=== PATIENT | male | born 1965 | race Caucasian/White ===

== ENCOUNTER 2016-10-27 06:09 | Inpatient (IN) ==
[2016-10-27] MEDS ORDERED: Lidocaine -MPF 4% 5 ML AMPUL ONE (06:46)
[2016-10-27] MEDS ORDERED: *HR* FentaNYL (PF) 100 MCG/2 ML VIAL ONE ×2 (06:50→07:17)
[2016-10-27] MEDS ORDERED: Ondansetron 4 MG/2 ML VIAL ONE (06:50)
[2016-10-27] MEDS ORDERED: *HR* Phenylephrine 10 MG/ML VIAL ONE (06:50)
[2016-10-27] MEDS ORDERED: Dexamethasone 4 MG/ML VIAL ONE (06:50)
[2016-10-27] MEDS ORDERED: *HR* Remifentanil 1 MG VIAL IVP ONE (06:50)
[2016-10-27] MEDS ORDERED: Lidocaine -MPF 2% 2 ML VIAL ONE (06:50)
[2016-10-27] MEDS ORDERED: *HR* Succinylcholine 200 MG/10 ML VIAL IVP ONE (06:50)
[2016-10-27] MEDS ORDERED: *HR* Midazolam HCl 2 MG/2 ML VIAL ONE ×2 (06:50→07:17)
[2016-10-27] MEDS ORDERED: *HR* Propofol 200 MG/20 ML VIAL IVP ONE (06:50)
[2016-10-27] MEDS ORDERED: Lidocaine 1% 20 ML MDV ID ONE (06:57)
[2016-10-27] MEDS ORDERED: CeFAZolin Pre 3,000 MG/100 ML 3,000 MG/100 ML BAG IVPB ONE (06:57)
[2016-10-27] MEDS ORDERED: Albuterol 2.5 MG/3 ML NEBULIZER IH ONE (07:00)
[2016-10-27] MEDS ORDERED: Ringers Solution, Lactated 1,000 ML IVC SCH (07:00)
--- NOTE | 2016-10-27 07:08 | Anesthesia Evaluation PreOp ---
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 (neck pain with intermittent bilat radic) Other Medical History: Denies Any Significant HX Anesthesia History: No Prior Anesthetic Complications, Past Anesthesia (r ankle , l wrist, bariatric, r eduard, l eduard) Alcohol Use: none Drug use: none Medications and Allergies Allergies NSAIDS (Non-Steroidal Anti-Inflamma Adverse Reaction (Verified 07/28/16 13:44) Nausea prednisone Adverse Reaction (Verified 07/28/16 13:44) Nausea - Meds/Allergy Pre-op Review Medications Reviewed: Yes Allergies Reviewed: Yes Beta Blockers on Current Med List: No Anesthesia Results - Labs Laboratory Tests 07/16/14 10/26/16 10/26/16 11:25 12:33 12:33 Hgb Hct Plt Count PT 13.5 H PTT 32.0 INR 1.2 Sodium 140 Potassium 4.8 H Creatinine 0.77 10/26/16 12:33 Hgb 13.5 Hct 42.4 Plt Count 186 PT PTT INR Sodium Potassium Creatinine Anesthesia Exam O2 Sat Height 1.8 m Height 1.8 m Weight 123.377 kg Weight 123.377 kg O2 Sat by Pulse Oximetry 97 Vital Signs Temp Pulse Resp BP Pulse Ox 97.9 F 59 18 127/76 97 10/27/16 06:52 10/27/16 06:52 10/27/16 06:52 10/27/16 06:52 10/27/16 06:52 Height: 1.8 Weight: 123 NPO (# of Hours): >8 - HEENT Pupil (Motor): Pupils equal, EOMI Mallampati: III Teeth: Poor dentition Oral Opening: Greater than 3 (good underbite) - MACHINE CLIPPER LOC: Oriented MACHINE CLIPPER Motor: Normal RLE, Normal LLE, Normal Face, Deficit RUE, Deficit LUE MACHINE CLIPPER Sensory: Normal: RLE, LLE, Face, Deficit: RUE, LUE - Cardiac Rhythm: Regular Murmur: None - Pulmonary Breath Sounds: bilateral Clear Respiratory Effort: Symmetrical Anesthesia Assess/Plan ASA Score: 2 (LEAH on induction with zero neck manipulation) Modified Thuan Scale for Level of Consciousness: Cooperative, oriented, and tranquil Anesthetic Plan: General Monitoring Plan: Standard Monitors Recovery Plan: PACU
--- NOTE | 2016-10-27 07:39 | History & Physical Report ---
Date of Encounter: 10/27/16 Time of Encounter: 07:38 24 Hour HP Update - Instructions Instructions: If the History and Physical is less than 30 days old and was completed prior to A.M. admission and or procedure and has NOT been updated on calendar day of procedure please complete this update prior to performing procedure. - Update Patient reports changes in Medical Condition: No Changes in assessment/condition: No Changes in Medication: No Preop tests/diagnostics Reviewed: Yes Pre-Op MRSA Screen: Negative Surgery Remains Indicated: Yes Consent for Planned Operative Procedure(s) Verified: Yes - Pre-Operative Checklist Preoperative Checklist Indicated: No Prophylactic Antibiotic Ordered: Yes Home Medications Include Beta Carson: No Beta Carson Taken Today (Day of Surgery): No Beta Carson Taken Yesterday (Day Prior to Surgery): No Is VTE Prophylaxis Indicated?: Yes
[2016-10-27] MEDS ORDERED: EPHEDrine 50 MG/ML VIAL ONE (08:33)
[2016-10-27] MEDS ORDERED: *HR* Labetalol 100 MG/20 ML MDV IVP PRN (09:22)
[2016-10-27] MEDS ORDERED: *HR* Promethazine 25 MG/ML VIAL IVP PRN (09:22)
--- NOTE | 2016-10-27 10:10 | Orthopedic Operative Note ---
Date of procedure: 10/27/16 Pre-op diagnosis: cervical stenosis, cervical radiculopathy Post-op diagnosis: same Operation/Findings: Anterior cervical decompression and fusion C5-C7:The patient was brought to the operating room and placed supine on the operating room table. Successful general endotracheal anesthesia intubation was performed. Neurophysiologic monitoring personnel placed leads on the upper and lower extremities as well as the cranium for EMG monitoring purposes. Appropriate baseline potentials were noted by the neurophysiologic monitoring staff. Reyna catheter was placed prior to positioning. Compression boots and stockings were placed for deep vein thrombosis prophylaxis. Padding was also placed all bony prominences including the ulnar nerve near the medial epicondyles of the elbows were appropriately padded. Mild traction was placed on the bilateral shoulders and taped into place. Preoperative antibiotics were administered. The area from the mandible bilaterally to the upper thoraces was prepped and draped in the usual sterile fashion. A transverse incision was made at the level of the cricoid cartilage which is approximately 3 cm in length and extended from the midline of the cervical spine laterally towards the sternocleidomastoid muscle on the left. We then performed standard medial approach to the carotid sheath. Sponges were used to tease the fascial medial to the sternocleidomastoid muscle while carefully controlling and palpating the carotid artery. Using careful dissection we were able to get to the level of the anterior vertebral bodies and longus coli muscles. The spinal needle was placed at the C6-7 appropriate level, and intraoperative radiograph was obtained which was a cervical spine lateral radiograph. The needle and radiograph confirmed we were at the correct operative level. We further exposed this level by using Bovie cautery under the medial edge of the longus colli muscles to allow them to be retracted approximately 2 mm laterally on each side. An 11 blade was used to perform anterior discectomy at the appropriate level after an initial annulotomy of the anterior longitudinal ligament and annulus was performed. Further disc material was removed with pituitary Rongeurs. Subsequently, Synthes pins were placed at the C6 and C7 vertebral bodies respectively to provide distraction. We then used a Trimline cervical retractor which was placed in both medial and lateral as well as inferior superior direction to allow full visualization of the appropriate disc and vertebral bodies. The Leica microscope was brought to the field and the remainder of the procedure was performed under the guidance of this microscope. Using pituitary rongeurs and small curettes, various micro-instruments, a full discectomy was performed at the appropriate C6-C7 level. The posterior longitudinal ligament was encountered and appeared partially calcified. A portion of this ligament was removed. After complete and thorough discectomy and removal of spondylitic material was performed the endplates of the vertebral bodies were prepared with a bur until allow bleeding of cancellous bone. A 7mm trial graft was evaluated and appeared to fit quite well within the excised C6-7 disc space. A cortico- cancellous allograft of 7 mm was utilized, carefully tapped into place within the excised disc space with the aid of a bone tamp. It was seated approximately 2 mm from the anterior edge of the cortex of the adjacent vertebral bodies. We then turned our attention to the C5-6 level where a similar series of procedures was performed including discectomy, removal of spondylitic material, end plate preparation, and trial grafting. An 8mm trial fit well within the C5-6 disc space. A 8 mm allograft was then placed at C5-6. A 42.5 mm cervical plate was then placed on the anterior aspect of the C5, C6 , and C7 vertebral bodies. The plate was placed in the midline position after drilling six 13 mm self tapping screws and inserting them. They were locked in place using standard Venture plate maneuvers. At this point a lateral radiograph of the cervical spine was obtained and showed satisfactory position of the graft and plate. The wound was copiously irrigated and bleeders encountered were cauterized using Bovie cautery. Platysma was closed with interrupted 2-0 Vicryl sutures. Running 3-0 Monocryl suture was used for skin closure. Sterile dressing was placed over the neck wound. A cervical collar was placed. The patient was transferred to a hospital bed and extubated. The patient was noted to be fully motor and sensory intact in the recovery room at the end of the procedure. The medications. All sponge instrument and needle counts were correct at the end of the procedure. Anesthesia: GETA Surgeon: Kahlil Stacy Jr Estimated blood loss (cc): 25 Condition: stable Disposition: PACU
[2016-10-27] MEDS: *HR* HYDROmorphone (PF) 1 MG/ML SYRINGE IVP PRN ×4 (10:47→11:13)
--- NOTE | 2016-10-27 11:34 | Anesthesia Evaluation Post Op ---
Date of Encounter: 10/27/16 Time of Encounter: 11:32 - Vital Signs Vital Signs: Vital Signs/O2 Sat/Glucose, Most Current Temp Pulse Resp BP Pulse Ox 10/27/16 11:15 97.3 F L 74 16 160/88 98 10/27/16 11:05 73 20 164/91 99 10/27/16 10:55 75 20 168/96 99 10/27/16 10:45 97.9 F 71 18 175/91 98 10/27/16 10:35 74 20 179/89 98 10/27/16 10:25 82 18 181/113 99 10/27/16 10:20 77 18 186/104 98 10/27/16 10:15 97.7 F 79 14 180/100 98 - Lungs Lungs: Clear Ascult./Percussion - Airway Airway: Non-obstructed - Cardiovascular Regular Rate - Mental Status Mental Status: Alert & Oriented, Answers Appropriately - Pain Pain Scale: 2 - Nausea Vomiting Nausea Vomiting: Not Present - Hydration Hydration: Tolerates oral liquids Notes: 10/27/16 11:32 called to pacu by rn immediately post op, she was concerned about left facial droop and tongue deviation. pt was HDS, lowest BP systolic intraop apporx 89 and transient (per policy cancellation clerk). pt's appearance and speech were the same as preop. pt could move tongue [id number] on exam. CNII-XII intact grossly. dr cody was notified and stated he was not concern and he will evaluate the pt on the floor. - Discharge PostOp Status: Transfer Patient to floor
[2016-10-27] MEDS ORDERED: *HR* Morphine 2 MG/ML SYRINGE IVP PRN (11:44)
[2016-10-27] MEDS ORDERED: Naloxone 0.4 MG/ML INJ IVP PRN (11:44)
[2016-10-27] MEDS ORDERED: Sennosides 8.6 MG TABLET PO PRN (11:44)
[2016-10-27] MEDS ORDERED: Ondansetron 4 MG/2 ML VIAL IVP PRN (11:44)
[2016-10-27] MEDS: Ringers Solution, Lactated 1,000 ML IVC SCH ×2 (12:45→14:18)
[2016-10-27] MEDS: *HR* OxyCODONE Immed Rel 5 MG TABLET PO PRN ×2 (14:58→21:07)
[2016-10-27] MEDS: ceFAZolin 2,000 MG in D5% in Water 100 ML IVPB SCH ×2 (16:42→23:13)
[2016-10-27] MEDS: *HR* Morphine 2 MG/ML SYRINGE IVP PRN ×2 (18:42→22:59)
[2016-10-28] MEDS: *HR* OxyCODONE Immed Rel 5 MG TABLET PO PRN ×2 (03:07→09:12)
[2016-10-28] MEDS: Ringers Solution, Lactated 1,000 ML IVC SCH (03:08)
[2016-10-28 06:37] VITALS: BP 118/76
--- NOTE | 2016-10-28 10:13 | Discharge Summary ---
Date of Encounter: 10/28/16 Time of Encounter: 10:11 - Discharge Diagnosis (1) Cervical stenosis of spine Priority: Primary Status: Chronic (2) Cervical radiculopathy Priority: Secondary Status: Chronic - Discharge Medications Prescriptions: OxyCODONE Immed Rel [Roxicodone 5 MG] 5 mg PO Q6HR PRN #60 tablet PRN Reason: Severe Pain Home Medications: Gabapentin [Neurontin] 600 mg PO TID 10/27/16 [History] Tramadol HCl [Ultram] 50 - 100 mg PO Q6H PRN 10/27/16 [History] OxyCODONE Immed Rel [Roxicodone 5 MG] 5 mg PO Q6HR PRN #60 tablet 10/28/16 [Rx] Allergies/Adverse Reactions: Allergies No Known Allergies Allergy (Verified 10/27/16 07:22) - Impressions ITS Impressions Cervical Spine X-Ray 10/27/16 00:00 IMPRESSION: Intraoperative view of the cervical spine demonstrates a surgical probe at the anterior aspect of C5-6 disc space. The results were called by Dr. Ziggy Olivares MD to Dr. Kahlil Stacy on 10/27/2016 at 08:43. D/ / Ziggy Olivares MD / Ziggy Olivares MD Interpreting Provider: Ziggy Olivares MD Cervical Spine X-Ray 10/27/16 00:00 IMPRESSION: Intraoperative images status post fusion from C5-C7 D/ / Brenden Jaimes MD / Brenden Jaimes MD Interpreting Provider: Brenden Jaimes MD Cervical Spine X-Ray 10/28/16 08:30 IMPRESSION: 1. Expected postoperative changes from C5 to C7 as above without complication. 2. Minimal to mild cervical spine degenerative changes. D/ / Brenden Mota MD / Brenden Mota MD Interpreting Provider: Brenden Mota MD Date of admission: 10/27/16 11:39 Primary care physician: Keshawn Mendoza Consults: 10/27/16 11:44 Consult to Occupational Therapy [CONS] Routine Comment: Evaluate, develop and implement POC Consult to Physical Therapy [CONS] Routine Comment: Evaluate, develop and implement POC Consult to Spine Navigator [CONS] [CONS] Routine - Patient Status Disposition: Home, Self-Care Condition: Good Functional capacity at discharge: independent ambulation Overall status at discharge: patient is progressing back to baseline - Discharge Instructions Follow Up With: Nubia Colin PAC [Physician Web Ui Software Engineer] - 11/10/16 8:40 am Brenden Hernandez MD [Primary Care Provider] - Charity Bolanos MD [Non-Partnered Physician] - 12/15/16 8:30 am - Diet and Activity Activity: as per physical therapy Diet: advance to your usual diet - Hospital Course Hospital course: Mr. Vicente is a 50 year old male The patient had an uneventful postoperative course. Progressed from intravenous analgesic needs to oral analgesic needs only. Remained neurovascularly intact and mobilized satisfactorily. All intraoperative and/or postoperative radiographic studies were satisfactory. Patient is discharged with plan for rehabilitation and follow-up in 2 weeks post discharge on analgesic medication and patient's home medications. - Time Spent with Patient Total time spent providing and/or coordinating discharge services: - VTE Documentation of Mechanical Device: Intermittent pneumatic compression device
== END 2016-10-28 11:29 | disposition home or self-care (01) | DRG 473 ==
LOC: SAMDAY 06:09 → 3NENU 11:39
PROVIDERS: ADMIT Orthopaedic Surgery Orthopaedic Surgery of the Spine; ATTEND Orthopaedic Surgery Orthopaedic Surgery of the Spine

== ENCOUNTER 2019-08-21 09:20 | Observation (INO) ==
[2019-08-21] MEDS ORDERED: Pantoprazole 40 MG VIAL IVP ONE (10:42)
[2019-08-21] MEDS ORDERED: Isovue-370 500 ML BOTTLE IVP ONE (10:45)
[2019-08-21] MEDS ORDERED: 0.9 % Sodium Chloride 1,000 ML IVC ONE (10:46)
[2019-08-21 10:58] LABS: Basophils % 0.3 %; Eosinophils # 0.1 K/mcL (0.0-0.6); Eosinophils % 1.8 %; Hemoglobin 12.2 g/dL (12.9-16.9); Immature Granulocytes % 0.3 % (0-4); Lymphocytes # 2.2 K/mcL (0.6-4.6); Mean Corpuscular Hemoglobin 28.2 pg (28.0-33.3); Mean Corpuscular Volume 85.5 fL (83.0-100.0); Mean Platelet Volume 10.9 fL (9.4-12.4); Monocytes # 0.4 K/mcL (0.0-1.3); Monocytes % 6.1 %; Neutrophils # 3.3 K/mcL (1.6-8.9); Platelet Count 183 K/mcL (140-400); Red Blood Count 4.33 M/mcL (4.19-5.50); Red Cell Distribution Width 13.7 % (11.5-14.5); Segmented Neutrophils % 55.5 %
[2019-08-21 11:04] LABS: INR 1.3; Prothrombin Time 15.2 Seconds (9.4-12.1)
[2019-08-21 11:07] LABS: Activated Partial Thrombo Time 31.9 Seconds (26.0-36.0)
[2019-08-21 11:14] LABS: BUN/Creatinine Ratio 23 (6-26); Blood Urea Nitrogen 15 mg/dL (6-20); Calcium 8.7 mg/dL (8.6-10.3); Carbon Dioxide 26 mEq/L (23-29); Chloride 106 mEq/L (98-107); Glucose 156 mg/dL (70-105); Osmolality,Calculated 286 (280-300); Potassium 4.3 mEq/L (3.5-5.1); Sodium 136 mEq/L (136-145); eGFR For African Americans > 60 (> 60); eGFR For Non-African Americans > 60 (> 60)
[2019-08-21 11:15] LABS: Troponin I < 0.03 ng/mL (< 0.04)
[2019-08-21] MEDS ORDERED: Naloxone 0.4 MG/ML INJ IVP PRN (14:05)
[2019-08-21] MEDS ORDERED: Ondansetron ODT 4 MG TAB.RAPDIS SL PRN (14:05)
[2019-08-21] MEDS ORDERED: Ondansetron 4 MG/2 ML VIAL IVP PRN (14:05)
[2019-08-21] MEDS ORDERED: *HR* OxyCODONE Immed Rel 5 MG TABLET PO PRN (14:26)
[2019-08-21 15:31] LABS: Amphetamine Screen,Urine Negative ng/mL (Cutoff=1000); Barbiturate Screen,Urine Negative ng/mL (Cutoff=200); Benzodiazepines Screen,Urine Negative ng/mL (Cutoff=200); Cannabinoid Screen,Urine Negative ng/mL (Cutoff = 50); Cocaine Screen,Urine Positive ng/mL (Cutoff= 300); Opiate Screen,Urine Negative ng/mL (Cutoff=300); Phencyclidine Screen,Urine Negative ng/mL (Cutoff=25)
[2019-08-22 06:31] LABS: Basophils % 0.5 %; Eosinophils # 0.1 K/mcL (0.0-0.6); Eosinophils % 2.6 %; Hematocrit 36.3 % (37.5-50.1); Hemoglobin 11.8 g/dL (12.9-16.9); Immature Granulocytes % 0.2 % (0-4); Lymphocytes # 2.2 K/mcL (0.6-4.6); Lymphocytes % 50.5 %; Mean Corpuscular HGB Conc 32.5 g/dL (31.6-35.5); Mean Corpuscular Hemoglobin 27.5 pg (28.0-33.3); Mean Corpuscular Volume 84.6 fL (83.0-100.0); Mean Platelet Volume 10.9 fL (9.4-12.4); Monocytes # 0.3 K/mcL (0.0-1.3); Monocytes % 5.8 %; Neutrophils # 1.7 K/mcL (1.6-8.9); Platelet Count 145 K/mcL (140-400); Red Blood Count 4.29 M/mcL (4.19-5.50); Red Cell Distribution Width 13.7 % (11.5-14.5); Segmented Neutrophils % 40.4 %; White Blood Count 4.3 K/mcL (4.3-11.1)
[2019-08-22 06:53] LABS: BUN/Creatinine Ratio 14 (6-26); Blood Urea Nitrogen 8 mg/dL (6-20); Calcium 8.3 mg/dL (8.6-10.3); Carbon Dioxide 30 mEq/L (23-29); Chloride 104 mEq/L (98-107); Glucose 92 mg/dL (70-105); Osmolality,Calculated 288 (280-300); Potassium 4.1 mEq/L (3.5-5.1); Sodium 140 mEq/L (136-145); eGFR For African Americans > 60 (> 60); eGFR For Non-African Americans > 60 (> 60)
[2019-08-22] MEDS ORDERED: Lidocaine -MPF 2% 2 ML VIAL ONE (14:14)
[2019-08-22] MEDS ORDERED: Propofol 500 MG/50 ML INFUS..BTL ONE (14:14)
[2019-08-24 05:17] LABS: Hematocrit 38.2 % (37.5-50.1); Hemoglobin 12.1 g/dL (12.9-16.9)
[2019-08-24 10:47] VITALS: BP 121/70
== END 2019-08-24 14:16 | disposition home health service (06) ==
LOC: 3ANU 09:20 → EMEROOARM 09:20 → SUATTDRO 14:02 → 3ANU 15:05
PROVIDERS: ADMIT Internal Medicine; ATTEND Internal Medicine